=== PATIENT | female | born 1970 | race Caucasian/White ===

== ENCOUNTER → 2016-04-07 08:44 | Outpatient (CLI) | payer MEDICAID ==
[2016-04-07 10:54] LABS: CREATININE - SERUM 0.7 mg/dL (0.6-1.3)
[2016-04-09 11:44] LABS: ANGIOTENSIN CONVERTING ENZYME 54 U/L (14-82)
[2016-04-23 16:06] LABS: FUNGAL - ASP FLAVUS Negative; FUNGAL - ASP NIGER Negative; FUNGAL - ASPER FUMIGATUS Negative
== END | disposition home or self-care (01) ==
LOC: D.RT 08:44
PROVIDERS: Internal Medicine Pulmonary Disease
DX: R91.1 Solitary pulmonary nodule (principal)

== ENCOUNTER → 2016-10-17 09:09 | Outpatient (CLI) | payer MEDICAID | END | disposition home or self-care (01) | LOC: D.RAD 09:09 | DX: R10.9 Unspecified abdominal pain (principal) ==

== ENCOUNTER → 2017-01-08 08:29 | Outpatient (CLI) | payer MEDICAID | END | disposition home or self-care (01) | LOC: D.CT 01-01 09:30 | DX: R91.1 Solitary pulmonary nodule (principal) ==

== ENCOUNTER → 2017-02-27 13:20 | Outpatient (CLI) | payer MEDICAID | END | disposition home or self-care (01) | LOC: D.CT 13:20 | DX: R10.9 Unspecified abdominal pain (principal) ==

== ENCOUNTER → 2017-07-03 09:03 | Outpatient (CLI) | payer MEDICARE | END | disposition home or self-care (01) | LOC: D.RT 09:00 | DX: J44.9 Chronic obstructive pulmonary disease, unspecified (principal) ==